=== PATIENT | male | born 1940 | race Caucasian/White ===

== ENCOUNTER 2016-10-10 06:28 | Emergency (ER) | payer MEDICARE ==
[2016-10-10 06:52] LABS: #Basophils 0.1 thou/uL (0.0-0.2); #Eosinphils 0.1 thou/uL (0.0-0.7); #Lymphocytes 2.2 thou/uL (1.20-3.40); #Monocytes 0.6 thou/uL (0.11-0.59); #Neutrophils 4.1 thou/uL (1.40-6.50); %Basophils 1.2 % (0.0-1.0); %Eosinophils 1.3 % (0.0-10.0); %Lymphocytes 30.8 % (21.0-51.0); %Monocytes 8.3 % (0.0-10.0); %Neutrophils 58.4 % (42.0-75.0); Hemoglobin 14.9 g/dL (14.0-18.0); Mean Corpuscular HGB CONC 34.4 g/dL (32.0-36.0); Mean Corpuscular Hemoglobin 31.3 pg (27.0-31.0); Mean Corpuscular Volume 91.1 fl (80.0-94.0); Mean Platelet Volume 7.6 fL (7.4-10.4); Platelet Count 226 thou/uL (130-400); RBC Distribution Width 12.1 % (11.5-14.5); Red Blood Cell (RBC) Count 4.75 mill/uL (4.70-6.10)
[2016-10-10 07:06] LABS: ALT (SGPT) 27 U/L (0-55); AST (SGOT) 23 U/L (5-34); Albumin 4.3 g/dL (3.4-4.8); Alkaline Phosphatase 47 U/L (40-150); Anion Gap 12 mmol/L (10-20); BUN (Urea Nitrogen) 23 mg/dL (8.4-25.7); Bilirubin, Total 0.5 mg/dL (0.2-1.2); Calc. Creatinine Clearance 0 mL/min (70-130); Calcium 9.1 mg/dL (7.8-10.44); Carbon Dioxide 23 mmol/L (23-31); Chloride 107 mmol/L (98-107); Estimated GFR-MDRD 89; Globulin 2.5 g/dL (2.4-3.5); Glucose 148 mg/dL (83-110); Potassium 3.7 mmol/L (3.5-5.1); Protein, Total 6.8 g/dL (5.8-8.1); Sodium 138 mmol/L (136-145)
[2016-10-10 07:09] LABS: Troponin I Less than 0.010 ng/mL (< 0.028)
[2016-10-10 07:13] LABS: CKMB 8.8 ng/mL (0-6.6)
[2016-10-10] MEDS ORDERED: Heparin 5,000 UNITS/ML VIAL ONE (08:00)
--- NOTE | 2016-10-10 10:05 | RAD ---
PORTABLE CHEST: Date: 10/10/16 Comparison is made with the 10/15/11 study. FINDINGS: The heart size is not seen substantially different than the 2012 exam. It is upper normal. There is no vascular congestion, edema, or pleural effusion. At most, there may be a little linear atelectasi s in the left base. The trachea is midline. Mild scoliosis is suggested. IMPRESSION: No acute thoracic findings. POS: HOME
== END 2016-10-10 07:38 | disposition short-term general hospital (02) ==
LOC: BURERS 06:28
DX: I48.91 Unspecified atrial fibrillation (principal); I49.9 Cardiac arrhythmia, unspecified; Z79.899 Other long term (current) drug therapy; Z79.82 Long term (current) use of aspirin; Z87.891 Personal history of nicotine dependence
CPT/HCPCS: 36415; 71010; 80053; 82553; 84484; 85025; 93005; 96365; 96376; J1644; J3490

== ENCOUNTER 2016-11-21 09:39 | Emergency (ER) | payer MEDICARE, OTHER ==
[2016-11-21] MEDS ORDERED: Pantoprazole 40 MG VIAL ONE (10:03)
[2016-11-21] MEDS ORDERED: Water For Inject, Bacteriostat 0 ML ONE (10:03)
[2016-11-21 10:09] LABS: #Basophils 0.1 thou/uL (0.0-0.2); #Eosinphils 0.1 thou/uL (0.0-0.7); #Lymphocytes 1.4 thou/uL (1.20-3.40); #Monocytes 0.4 thou/uL (0.11-0.59); #Neutrophils 4.8 thou/uL (1.40-6.50); %Basophils 0.9 % (0.0-1.0); %Eosinophils 1.3 % (0.0-10.0); %Lymphocytes 21.3 % (21.0-51.0); %Monocytes 5.9 % (0.0-10.0); %Neutrophils 70.6 % (42.0-75.0); Hemoglobin 14.7 g/dL (14.0-18.0); Mean Corpuscular HGB CONC 33.1 g/dL (32.0-36.0); Mean Corpuscular Hemoglobin 30.5 pg (27.0-31.0); Mean Corpuscular Volume 92.3 fl (80.0-94.0); Mean Platelet Volume 7.8 fL (7.4-10.4); Platelet Count 217 thou/uL (130-400); RBC Distribution Width 12.1 % (11.5-14.5); Red Blood Cell (RBC) Count 4.82 mill/uL (4.70-6.10); White Blood Cell (WBC) Count 6.8 thou/uL (4.8-10.8)
[2016-11-21 10:12] LABS: INR-International Normal Ratio 1.3; PTT 30.6 SEC (22.9-36.1); Prothrombin Time 16.1 SEC (12.0-14.7)
[2016-11-21 10:19] LABS: ALT (SGPT) 31 U/L (8-55); AST (SGOT) 16 U/L (5-34); Albumin 4.1 g/dL (3.4-4.8); Alkaline Phosphatase 49 U/L (40-150); Anion Gap 14 mmol/L (10-20); BUN (Urea Nitrogen) 17 mg/dL (8.4-25.7); Bilirubin, Total 0.7 mg/dL (0.2-1.2); Calc. Creatinine Clearance 0 mL/min (70-130); Calcium 8.5 mg/dL (7.8-10.44); Carbon Dioxide 21 mmol/L (23-31); Chloride 108 mmol/L (98-107); Estimated GFR-MDRD Greater than 90; Globulin 2.6 g/dL (2.4-3.5); Glucose 146 mg/dL (83-110); Lipase 20 U/L (8-78); Potassium 3.9 mmol/L (3.5-5.1); Protein, Total 6.7 g/dL (5.8-8.1); Sodium 139 mmol/L (136-145)
[2016-11-21 10:26] LABS: CKMB 5.1 ng/mL (0-6.6); Troponin I Less than 0.010 ng/mL (< 0.028)
--- NOTE | 2016-11-21 12:23 | RAD ---
ACUTE ABDOMEN SERIES: Date: 11/21/16 Supine and erect films show no free air beneath the diaphragm. The gas pattern is unremarkable and n onspecific. Some of the loops of colon in the right upper quadrant are a little larger than others, but still not worrisome. There is a moderate amount of fecal material in the colon. An air fluid lev el in the stomach is not particularly worrisome. No calcifications of concern were seen. A chest liane m in the series shows the heart to be upper limits of normal in size, but unchanged from the 7 study. The lungs are clear except for an area of scarring in the left costophrenic angle. IMPRESSION: Nonspecific abdominal findings. Mild constipation. POS: HOME
== END 2016-11-21 11:20 | disposition short-term general hospital (02) ==
LOC: BURERS 09:39
DX: K92.2 Gastrointestinal hemorrhage, unspecified (principal); R94.31 Abnormal electrocardiogram [ECG] [EKG]; I10 Essential (primary) hypertension; I48.91 Unspecified atrial fibrillation; Z87.891 Personal history of nicotine dependence; Z79.82 Long term (current) use of aspirin; Z79.899 Other long term (current) drug therapy
CPT/HCPCS: 36415; 74022; 80053; 82274; 82553; 83690; 84484; 85025; 85610; 85730; 93005; 94760; 96374; C9113

== ENCOUNTER 2019-10-05 07:32 | Emergency (ER) | payer MEDICARE, OTHER ==
[2019-10-05 08:09] LABS: #Basophils 0.1 thou/uL (0.0-0.2); #Eosinphils 0.2 thou/uL (0.0-0.7); #Lymphocytes 1.6 thou/uL (1.20-3.40); #Monocytes 0.5 thou/uL (0.11-0.59); #Neutrophils 3.8 thou/uL (1.40-6.50); %Basophils 1.2 % (0.0-1.0); %Eosinophils 3.2 % (0.0-10.0); %Lymphocytes 25.9 % (21.0-51.0); %Monocytes 7.6 % (0.0-10.0); %Neutrophils 62.3 % (42.0-75.0); Hemoglobin 15.4 g/dL (14.0-18.0); Mean Corpuscular HGB CONC 32.9 g/dL (32.0-36.0); Mean Corpuscular Volume 91.3 fL (78.0-98.0); Mean Platelet Volume 8.2 fL (7.4-10.4); Platelet Count 219 thou/uL (130-400); RBC Distribution Width 11.8 % (11.5-14.5); Red Blood Cell (RBC) Count 5.13 mill/uL (4.70-6.10); White Blood Cell (WBC) Count 6.1 thou/uL (4.8-10.8)
[2019-10-05 08:26] LABS: ALT (SGPT) 23 U/L (8-55); AST (SGOT) 19 U/L (5-34); Albumin 4.5 g/dL (3.4-4.8); Alkaline Phosphatase 54 U/L (40-110); Anion Gap 14 mmol/L (10-20); BUN (Urea Nitrogen) 17 mg/dL (8.4-25.7); Bilirubin, Total 0.5 mg/dL (0.2-1.2); Calc. Creatinine Clearance 0 mL/min (70-130); Calcium 9.3 mg/dL (7.8-10.44); Carbon Dioxide 24 mmol/L (23-31); Chloride 108 mmol/L (98-107); Estimated GFR-MDRD 80; Globulin 2.8 g/dL (2.4-3.5); Glucose 133 mg/dL (83-110); Potassium 4.6 mmol/L (3.5-5.1); Protein, Total 7.3 g/dL (5.8-8.1); Sodium 141 mmol/L (136-145)
[2019-10-05 08:39] LABS: Bilirubin Negative (Negative); Blood, Urine Trace (Negative); Clarity Clear (Clear); Glucose, Urine (Dipstick) Negative (Negative); Leukocyte Negative (Negative); Nitrite Negative (Negative); Protein, Urine (Dipstick) Negative (Neg-Trace); Urobilinogen 0.2 mg/dL (Less than 2)
[2019-10-05 08:45] LABS: Bacteria/HPF Rare-Few HPF (None Seen); RBC/HPF None Seen HPF (0-3); Squamous Epithelial 0-3 HPF (0-3); WBC/HPF None Seen HPF (0-3)
[2019-10-05] MEDS ORDERED: Metoprolol Tartrate 5 MG/5 ML VIAL ONE (09:49)
--- NOTE | 2019-10-05 15:43 | RAD ---
PORTABLE CHEST: DATE: 10/05/2019. FINDINGS: An AP portable film at 0804 is compared with a 03/13/2017 study. The heart size is stable. There is no pulmonary edema or pleural effusion. A little bit of scarring is suggested in the left costophrenic angle which was faintly visible previously. The vessels are m arkedly more prominent than they were before, but not enough to diagnose congestive failure. IMPRESSION: No definite acute findings. POS: HOME
== END 2019-10-05 09:46 | disposition home or self-care (01) ==
LOC: BURERS 07:32
DX: I48.91 Unspecified atrial fibrillation (principal); I10 Essential (primary) hypertension; I49.9 Cardiac arrhythmia, unspecified; Z79.899 Other long term (current) drug therapy; Z79.82 Long term (current) use of aspirin
CPT/HCPCS: 71045; 80053; 81003; 81015; 83605; 83880; 84443; 84484; 85025; 93005; 94760; 96374

== ENCOUNTER 2023-01-27 10:54 | Emergency (ER) | payer MEDICARE, OTHER ==
[2023-01-27] MEDS ORDERED: dilTIAZem 25 MG/5 ML VIAL ONE (11:10)
[2023-01-27 11:13] LABS: #Lymphocytes 1.2 thou/uL (1.20-3.40); #Monocytes 0.6 thou/uL (0.11-0.59); #Neutrophils 5.9 thou/uL (1.40-6.50); %Basophils 0.6 % (0.0-1.0); %Eosinophils 0.2 % (0.0-10.0); %Lymphocytes 15.4 % (21.0-51.0); %Monocytes 8.2 % (0.0-10.0); %Neutrophils 75.6 % (42.0-75.0); Hematocrit 44.1 % (42.0-52.0); Hemoglobin 14.4 g/dL (14.0-18.0); Mean Corpuscular HGB CONC 32.7 g/dL (32.0-36.0); Mean Corpuscular Hemoglobin 28.9 pg (27.0-31.0); Mean Corpuscular Volume 88.5 fl (78.0-98.0); Mean Platelet Volume 7.3 fL (7.4-10.4); Platelet Count 263 10x3/uL (130-400); RBC Distribution Width 11.5 % (11.5-14.5); Red Blood Cell (RBC) Count 4.98 mill/uL (4.70-6.10); White Blood Cell (WBC) Count 7.9 10x3/uL (4.8-10.8)
[2023-01-27 11:30] LABS: ALT (SGPT) 18 U/L (8-55); AST (SGOT) 14 U/L (5-34); Albumin 4.4 g/dL (3.4-4.8); Alkaline Phosphatase 67 U/L (40-110); Anion Gap 16 mmol/L (10-20); BUN (Urea Nitrogen) 16 mg/dL (8.4-25.7); Bilirubin, Total 0.4 mg/dL (0.2-1.2); Calc. Creatinine Clearance 0 mL/min (70-130); Calcium 9.6 mg/dL (7.8-10.44); Carbon Dioxide 21 mmol/L (23-31); Chloride 107 mmol/L (98-107); Estimated GFR 84; Globulin 2.6 g/dL (2.4-3.5); Glucose 156 mg/dL (83-110); Potassium 3.9 mmol/L (3.5-5.1); Sodium 140 mmol/L (136-145)
[2023-01-27 11:31] LABS: Troponin I 0.018 ng/mL (< 0.028)
[2023-01-27] MEDS ORDERED: dilTIAZem 125 MG/25 ML SDV ONE (11:35)
== END 2023-01-27 13:39 | disposition short-term general hospital (02) ==
LOC: BURERS 10:54
DX: I48.92 Unspecified atrial flutter (principal); I10 Essential (primary) hypertension; I48.91 Unspecified atrial fibrillation; E78.00 Pure hypercholesterolemia, unspecified; Z79.01 Long term (current) use of anticoagulants; Z79.899 Other long term (current) drug therapy
CPT/HCPCS: 71045; 80053; 84484; 85025; 93005; 94760; 96365; 96366; 96376

== ENCOUNTER 2024-03-17 12:00 | Outpatient (CLI) | payer MEDICARE, OTHER | END 2024-03-17 12:01 | disposition home or self-care (01) | LOC: BURCT 12:00 | PROVIDERS: ATTEND Family Medicine | DX: R51.9 Headache, unspecified (principal); R42 Dizziness and giddiness; G93.89 Other specified disorders of brain; H74.8X2 Other specified disorders of left middle ear and mastoid | CPT/HCPCS: 70450 ==

== ENCOUNTER 2024-04-08 21:47 | Emergency (ER) | payer MEDICARE, OTHER ==
[~2024-04-08 21:47] MED LIST: Iopamidol 370 76% 100 ML VIAL ONE
[2024-04-08] MEDS ORDERED: Acetaminophen 500 MG TAB ONE (22:14)
[2024-04-08 22:17] LABS: #Basophils 0.1 thou/uL (0.0-0.2); #Lymphocytes 0.5 thou/uL (1.20-3.40); #Monocytes 0.3 thou/uL (0.11-0.59); #Neutrophils 11.3 thou/uL (1.40-6.50); %Basophils 0.5 % (0.0-1.0); %Eosinophils 0.2 % (0.0-10.0); %Lymphocytes 3.8 % (21.0-51.0); %Monocytes 2.3 % (0.0-10.0); %Neutrophils 93.1 % (42.0-75.0); Hematocrit 45.5 % (42.0-52.0); Hemoglobin 14.6 g/dL (14.0-18.0); Mean Corpuscular Volume 90.5 fl (78.0-98.0); Mean Platelet Volume 7.2 fL (7.4-10.4); Platelet Count 250 10x3/uL (130-400); RBC Distribution Width 11.5 % (11.5-14.5); Red Blood Cell (RBC) Count 5.03 mill/uL (4.70-6.10); White Blood Cell (WBC) Count 12.1 10x3/uL (4.8-10.8)
[2024-04-08] MEDS ORDERED: Loperamide HCl 2 MG CAP PO SCH (22:30)
[2024-04-08 22:36] LABS: ALT (SGPT) 21 U/L (8-55); AST (SGOT) 16 U/L (5-34); Albumin 4.1 g/dL (3.4-4.8); Alkaline Phosphatase 72 U/L (40-110); Anion Gap 16 mmol/L (10-20); BUN (Urea Nitrogen) 23 mg/dL (8.4-25.7); Bilirubin, Total 0.5 mg/dL (0.2-1.2); Calc. Creatinine Clearance 0 mL/min (70-130); Calcium 9.1 mg/dL (7.8-10.44); Carbon Dioxide 19 mmol/L (23-31); Chloride 108 mmol/L (98-107); Estimated GFR 86; Globulin 2.8 g/dL (2.4-3.5); Glucose 181 mg/dL (83-110); Lipase 37 U/L (8-78); Potassium 4.2 mmol/L (3.5-5.1); Protein, Total 6.9 g/dL (5.8-8.1); Sodium 139 mmol/L (136-145)
== END 2024-04-08 23:37 | disposition home or self-care (01) ==
LOC: BURERS 21:47
DX: K52.9 Noninfective gastroenteritis and colitis, unspecified (principal); I10 Essential (primary) hypertension; I48.91 Unspecified atrial fibrillation; E78.5 Hyperlipidemia, unspecified; Z79.01 Long term (current) use of anticoagulants; Z79.899 Other long term (current) drug therapy
CPT/HCPCS: 74177; 80053; 83690; 85025; 96360; Q9967

== ENCOUNTER 2024-04-09 09:00 | Emergency (ER) | payer MEDICARE, OTHER | END 2024-04-09 10:18 | disposition home or self-care (01) | LOC: BURERS 09:00 | DX: R19.7 Diarrhea, unspecified (principal); I48.20 Chronic atrial fibrillation, unspecified; I10 Essential (primary) hypertension | CPT/HCPCS: 99283 ==